=== PATIENT | male | born 1940 | race Caucasian/White ===

== ENCOUNTER 2018-02-06 19:46 | Emergency (ER) | payer BC, MEDICARE ==
[2018-02-06 20:02] VITALS: BP 144/85
[2018-02-06] MEDS ORDERED: Ondansetron 4 MG/2 ML SDV IM ONE (20:16)
[2018-02-06] MEDS ORDERED: HYDROmorphone 1 MG/ML Syringe IM ONE (20:16)
--- NOTE | 2018-02-06 20:19 | EDM.PDOC ---
ED HPI GENERAL MEDICAL PROBLEM - General Chief Complaint: Abdominal Pain Stated Complaint: STEPPED WRONG AND HURT LEFT SIDE DOWN INTO LEG Time Seen by Provider: 02/06/18 20:14 Source of Information: Reports: Patient History Limitations: Reports: No Limitations - History of Present Illness INITIAL COMMENTS - FREE TEXT/NARRATIVE: 77-year-old male presents to the ED for evaluation of left upper quadrant abdominal pain left flank back pain radiate down the posterior lateral aspect of his left leg. Pain does not radiate down into his testicle. 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 States he lost his balance did trip and fell to the ground. has had 3 major back surgeries with fusion of the lumbar spine. Patient has chronic low back pain for which he is on Nucynta 3 times daily. He is on multiple other medications for chronic pain relief. He feels most of the pain in the left upper quadrant of his abdomen. He believes that he may have stretched his abdominal wall muscles. 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 Denies hitting his head or any body parts. Does not hurt in his ribs. Bowels work normally earlier today with no blood. Does have a history of kidney stones. However he is not nauseated and doesn't have a continuous feeling of need to void or defecate. Onset: Today Onset Date: 02/06/18 Onset Time: 18:00 Duration: Hour(s): Location: Reports: Abdomen (Upper quadrant and mid abdomen.), Back (Left low back pain rating down the posterior lateral aspect of his left thigh compared with L5 nerve root irritation.) Quality: Reports: Ache, Other Severity: Moderate (Pain is worse with movement no pain when he is at rest.) Improves with: Reports: Rest Worsens with: Reports: Movement Context: Reports: Other (Which did cause him to fall to the ground). Denies: Activity (Such as sitting up from a lying down position.), Exercise, Lifting, Sick Contact Associated Symptoms: Reports: Cough, cough w sputum (Chronic cough as he is a cigarette smoker with COPD), Shortness of Breath. 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 (see below) (No new pain medicines today.) Left Lower Abdomen Pain Score (Numeric/FACES): 10 - Related Data Allergies Allergy/AdvReac Type Severity Reaction Status Date / Time acetaminophen [From [place]] Allergy Chills Verified 02/06/18 19:59 amitriptyline Allergy Confusion Verified 02/06/18 19:59 diazepam Allergy Hallucinati Verified 02/06/18 19:59 ons hydrocodone [From [place]] Allergy Chills Verified 02/06/18 19:59 methadone Allergy Hallucinati Verified 02/06/18 19:59 ons Home Meds: Home Meds Albuterol Sulfate [Proair Hfa] 2 puff INH Q4H PRN 08/01/16 [History] Aspirin [Halfprin] 1 tab PO Q48H 08/01/16 [History] Clopidogrel [Plavix] 1 tab PO DAILY 08/01/16 [History] Esomeprazole [NexIUM] 1 cap PO DAILY 08/01/16 [History] Finasteride 1 tab PO DAILY 08/01/16 [History] Fluticasone/Salmeterol [Advair 100-50 Diskus] 1 puff INH BID 08/01/16 [History] Gabapentin 1 cap PO QID 08/01/16 [History] Tamsulosin [Flomax] 1 tab PO DAILY 08/01/16 [History] Tapentadol HCl [Nucynta ER] 1 tab PO BID 08/01/16 [History] rOPINIRole HCl [Ropinirole HCl] 1 tab PO 1200 08/01/16 [History] predniSONE [Deltasone] 20 mg PO BID #12 tablet 02/06/18 [Rx] Past Medical History HEENT History: Reports: None, Cataract, Impaired Vision Other HEENT History: Wears glasses Cardiovascular History: Reports: None Respiratory History: Reports: COPD Gastrointestinal History: Reports: GERD Genitourinary History: Reports: BPH 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: None Musculoskeletal History: Reports: Arthritis Other Musculoskeletal History: chronic low back paiun, myofascial muscle pain, post laminectomy syndrome (lumbar region), restless leg syndrome Neurological History: Reports: CVA, Headaches, Chronic, TIA Other Neuro History: abnormal involuntary movement Psychiatric History: Reports: None Endocrine/Metabolic History: Reports: None Hematologic History: Reports: None Immunologic History: Reports: None Oncologic (Cancer) History: Reports: None Dermatologic History: Reports: Other (See Below) Other Dermatologic History: skin sensation disturbance, easily bruises, malignant neoplasm of skin, acitnic keratosis, dysplastic nevus, seborrheic keratoses - Past Surgical History Head Surgeries/Procedures: Reports: None HEENT Surgical History: Reports: Cataract Surgery GI Surgical History: Reports: Appendectomy, Cholecystectomy Neurological Surgical History: Reports: Lumbar Spine Social & Family History - Caffeine Use Caffeine Use: Reports: None - Living Situation & Occupation Living situation: Reports: Single 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 Denies: Fever, Chills, Malaise, Weakness, Fatigue, Weight Loss HEENT: Reports: Glasses, Hearing Loss (Mild hearing problems) Respiratory: Reports: Shortness of Breath, Wheezing (Chronically known COPD with chronic cough due to cigarette smoking.), Cough, Sputum (Chronic cough sputum is usually brownish to white in color). Denies: Pleuritic Chest Pain Cardiovascular: Reports: Blood Pressure Problem, Claudication, Dyspnea on Exertion (Chronically). Denies: Chest Pain, Edema, Lightheadedness, Orthopnea GI/Abdominal: Reports: Abdominal Pain (See history of present illness). Denies : Decreased Appetite, Difficulty Swallowing, Distension, Flatus, Hematemesis, Hematochezia, Melena : Reports: Other (Nocturia 2. Known BPH.) Musculoskeletal: Reports: Back Pain (Chronic low back pain with 3 previous surgeries to fuse his lower back. Currently having pain in the posterior lateral left thigh) Skin: Reports: No Symptoms ( both L5 nerve root irritation.) Neurological: Reports: Difficulty Walking. Denies: Confusion, Dizziness, Headache, Numbness, Paresthesia, Pre-Existing Deficit, Seizure, Syncope, Tingling, Tremors, Trouble Speaking, Weakness Psychiatric: Reports: No Symptoms Hematologic/Lymphatic: Reports: No Symptoms ED EXAM, GI/ABD - Physical Exam Exam: See Below Exam Limited By: No Limitations General Appearance: Alert, WD/WN, Mild Distress Eyes: Bilateral: Normal Appearance (Very thin in appearance.) Throat/Mouth: Other (Or fractures diffusely erythematous from cigarette smoking. ) Head: Atraumatic, Normocephalic Neck: Normal Inspection, Supple, Non-Tender, Full Range of Motion. No: Lymphadenopathy (L), Lymphadenopathy (R) Respiratory/Chest: Respiratory Distress, Decreased Breath Sounds (Mild tachypnea at rest), Wheezing. No: Lungs Clear, Normal Breath Sounds, Chest Non- Tender Cardiovascular: Normal Peripheral Pulses (Occasional expiratory wheezes throughout lung koo.), Regular Rate, Rhythm, No Edema, No Murmur GI/Abdominal Exam: Soft, Tender (Tenderness left upper quadrant abdomen which appears to be quite deep to palpation.). No: Guarding, Rigid, Rebound (Male) Exam: No Hernia. No: Scrotum Tenderness (L), Scrotum Tenderness (R) Back Exam: Other (Phone to be extremely tender throughout the left lower lumbar spine particularly for 5 and 5 L5-S1 facet joints and the superior half of the SI joint. Pain on right sacroiliac joint palpation.) Extremities: Normal Inspection, Normal Range of Motion Neurological: Alert, Oriented, CN II-XII Intact, Normal Cognition Psychiatric: Normal Affect, Normal Mood Skin Exam: Warm, Dry, Intact, Normal Color, Other Course - Vital Signs Last Recorded V/S: Last Vital Signs Temp 36.6 C 02/06/18 19:59 Pulse 86 02/06/18 19:59 Resp 18 02/06/18 19:59 BP 144/85 H 02/06/18 19:59 Pulse Ox 92 L 02/06/18 19:59 - Orders/Labs/Meds Orders: Active Orders 24 hr Category Date Time Status Abdomen 1V Flat [CR] Stat Exams 02/06/18 20:15 Taken Lumbar Spine 2 or 3V [CR] Stat Exams 02/06/18 20:14 Taken URINALYSIS W/MICROSCOPIC [UA W/MICROSCOPIC] [URIN] Stat Lab 02/06/18 20:48 Ordered Meds: Medications Discontinued Medications Generic Name Dose Route Start Last Admin Trade Name Freq PRN Reason Stop Dose Admin Hydromorphone HCl 1 mg 02/06/18 20:16 02/06/18 20:30 Dilaudid IM 02/06/18 20:17 1 mg ONETIME ONE Administration Ondansetron HCl 4 mg 02/06/18 20:16 02/06/18 20:29 Zofran IM 02/06/18 20:17 4 mg ONETIME ONE Administration - Radiology Interpretation Free Text/Narrative:: 77-year-old male presents the ED with acute onset of left upper quadrant abdominal pain mild upper back pain in the flank and left lower back pain rating down the posterior lateral aspect of his left leg. He states all this occurred when he slipped off the step coming out of the semitruck about 1800 hrs. today. He has no pain when he is at rest. Pain is severe with movement like sitting up. Periodically strained his external oblique muscles but it's pain is very deep to palpation left upper quadrant. Does have pain at L4-L5 and L5-S1 facet joints and left sacroiliac joint. No inguinal hernia evident. One view of the abdomen to be done since she has a history of bowel obstructions. I do not see feel this is present at this time. Two-view of his lumbar spine to be done. We'll give him 1 mg of Dilaudid IM with Zofran 4 mg IM. Patient is on anticoagulant Plavix. He also takes Nucynta 3 times daily therefore he has a very high narcotic pain medication tolerance. - Re-Assessments/Exams Free Text/Narrative Re-Assessment/Exam: 02/06/18 20:51 KUB reveals increased air throughout the right hemicolon and left upper quadrant of the abdomen. Eyes of bowel obstruction. X-rays of lumbar spine reveal multilevel fusion from lumbar 2 to S1. He has a scoliosis concave to the right side. He does have compression fracture deformities on the right side. Hardware appears to be in good position with no signs of loosening. Patient will be discharged to home. I'm going to place him on a short course of prednisone 20 mg twice a day for the next 6 days starting tonight. He will use one twice daily with breakfast and supper. Follow-up with his personal care physician if he is not improved in the next 5-7 days. Advised he will be worse tomorrow and likely the next day as well. Departure - Departure Time of Disposition: 20:46 Disposition: Home, Self-Care 01 Condition: Fair Clinical Impression: Low back strain Qualifiers: Encounter type: initial encounter Qualified Code(s): S39.012A - Strain of muscle, fascia and tendon of lower back, initial encounter - Discharge Information *PRESCRIPTION DRUG MONITORING PROGRAM REVIEWED*: Yes *COPY OF PRESCRIPTION DRUG MONITORING REPORT IN PATIENT KIM: No Prescriptions: predniSONE [Deltasone] 20 mg PO BID #12 tablet Referrals: Samira Anglin NP [Primary Care Provider] - Forms: ED Department Discharge Additional Instructions: Evaluation in the emergency room today in regards to acute strain of your lower back and mid back with radiation of pain into left upper abdomen. Sriram examination is benign other than a collection of air up underneath the left hemidiaphragm on x-ray. Had a look at your back on x-ray and you shows severe scoliosis to the right side with multilevel the obvious new fractures. Treatment is therefore time to heal from suspect strain today during trip and fall for getting down from the truck. Expect to be a little worse tomorrow and perhaps the next day and then slowly improved. Continue all current medications I suggest a short course of prednisone 20 mg twice daily with breakfast and supper although you may take the first tablet tonight. This is for 6 days to relieve pain and inflammation in your back. Follow-up with personal care provider as needed. - My Orders Last 24 Hours: My Active Orders 02/06/18 20:14 Lumbar Spine 2 or 3V [CR] Stat 02/06/18 20:15 Abdomen 1V Flat [CR] Stat 02/06/18 20:48 URINALYSIS W/MICROSCOPIC [UA W/MICROSCOPIC] [URIN] Stat - Assessment/Plan Last 24 Hours: My Active Orders 02/06/18 20:14 Lumbar Spine 2 or 3V [CR] Stat 02/06/18 20:15 Abdomen 1V Flat [CR] Stat 02/06/18 20:48 URINALYSIS W/MICROSCOPIC [UA W/MICROSCOPIC] [URIN] Stat
--- NOTE | 2018-02-09 19:39 | CR ---
Lumbar spine: AP and lateral views of the lumbar spine were obtained as well as coned down lateral view centered to the lumbosacral junction. Comparison: No prior lumbar spine imaging. Transpedicle screws are seen within L1-S1. Scoliosis noted. Osteopenia is present. Slight compression deformities are noted at T11 and T12 which are most likely old. Nothing acute is appreciated. Impression: 1. Extensive surgery. Osteopenia and scoliosis. Several slight compression deformities. 2. Nothing acute is appreciated. Diagnostic code #2
--- NOTE | 2018-02-09 19:39 | CR ---
Abdomen: Supine view of the abdomen was obtained. Comparison: No prior abdominal imaging. Previous lumbar spine surgery noted. Scoliosis noted within the spine. Diffuse gas noted within the colon which does not appear to be obstructive. Osteopenia is present. No discrete soft tissue abnormality is seen. Impression: 1. Diffuse gas within the colon which does not appear to be obstructive. May represent minimal ileus. 2. Other incidental findings. Diagnostic code #2
== END 2018-02-06 20:58 | disposition home or self-care (01) ==
LOC: JD.ED 19:46
DX: S39.012A Strain of muscle, fascia and tendon of lower back, initial encounter (principal); Z88.8 Allergy status to other drugs, medicaments and biological substances; Z79.82 Long term (current) use of aspirin; Z79.899 Other long term (current) drug therapy; Z86.73 Personal history of transient ischemic attack (TIA), and cerebral infarction without residual deficits; Z98.1 Arthrodesis status; V69.9XXA Occupant (driver) (passenger) of heavy transport vehicle injured in unspecified traffic accident, initial encounter
CPT/HCPCS: 72100; 74018; 81001; 96372; 99284; J1170; J2405

== ENCOUNTER 2019-07-02 12:59 | Observation (INO) | payer MEDICARE, BC ==
[2019-07-02] MEDS ORDERED: Sodium Chloride 0.9% 10 ML Syringe FLUSH PRN (13:09)
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
[2019-07-02] MEDS ORDERED: ceFAZolin 2 GM in Premix Bag 1 BAG IV ONE (13:30)
[2019-07-02] MEDS ORDERED: Albuterol 6.7 GM Inhaler INH PRN (13:31)
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
[2019-07-02] MEDS: Bupivacaine 0.5%/EPINEPHrine 1:200,000 50 ML MDV ONE ×2 (13:43→14:49)
[2019-07-02] MEDS ORDERED: Ondansetron 4 MG/2 ML SDV ONE (13:44)
[2019-07-02] MEDS ORDERED: Lidocaine 1% 4 ML ONE (13:44)
[2019-07-02] MEDS ORDERED: Lactated Ringers 1,000 ML ONE ×2 (13:44→15:03)
[2019-07-02] MEDS ORDERED: ceFAZolin 1 GM Vial ONE (13:44)
[2019-07-02] MEDS ORDERED: fentaNYL 250 MCG/5 ML SDV ONE (13:44)
[2019-07-02] MEDS ORDERED: Propofol 200 MG/20 ML SDV ONE (13:44)
[2019-07-02] MEDS ORDERED: Rocuronium 50 MG/5 ML Vial ONE (13:44)
[2019-07-02] MEDS ORDERED: Dexamethasone 4 MG/ML 5 ML MDV ONE (13:44)
[2019-07-02] MEDS ORDERED: Succinylcholine/Normal Saline 100 MG/5 ML Syringe ONE (13:45)
[2019-07-02] MEDS ORDERED: Albuterol 0.083% 2.5 MG/3 ML Neb Soln NEB ONE (14:02)
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
[2019-07-02] MEDS ORDERED: Neostigmine Methylsulfate 1 MG/ML 5 ML Syringe ONE (14:51)
[2019-07-02] MEDS ORDERED: Albuterol 0.083% 2.5 MG/3 ML Neb Soln NEB PRN (14:52)
[2019-07-02] MEDS ORDERED: Ondansetron 4 MG/2 ML SDV IVPUSH PRN (14:52)
[2019-07-02] MEDS ORDERED: HYDROmorphone 0.5 MG/0.5 ML Syringe IVPUSH PRN (14:52)
[2019-07-02] MEDS ORDERED: fentaNYL 100 MCG/2 ML SDV IVPUSH PRN (14:52)
[2019-07-02] MEDS ORDERED: Ketamine 500 mg/10 ML MDV ONE (14:54)
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
--- NOTE | 2019-07-02 16:03 | PCM.POSTAN ---
POST ANESTHESIA ASSESSMENT - MENTAL STATUS Mental Status: Alert, Oriented, Disoriented (Initially disoriented, but came around rather quickly) - VITAL SIGNS Vital Signs: Last Vital Signs Temp 36.7 C 07/02/19 13:03 Pulse 93 07/02/19 13:40 Resp 20 07/02/19 13:40 BP 116/76 07/02/19 13:40 Pulse Ox 95 07/02/19 14:02 - RESPIRATORY Respiratory Status: Respiratory Rate WNL, Airway Patent, O2 Saturation Stable, Supplemental Oxygen (2 L NC O2) - CARDIOVASCULAR CV Status: Pulse Rate WNL, Blood Pressure Stable - GASTROINTESTINAL GI Status: No Symptoms - PAIN Pain Score: 0 - POST OP HYDRATION Hydration Status: Adequate & Stable - OBSERVATIONS Free Text/Narrative:: Patient was initially a little dysphoric and wasn't making sense in his speech, but shortly after arriving in recovery he was answering questions appropriately and following commands and knew where he lived and what happened to him.
--- NOTE | 2019-07-02 16:18 | PCM48HPAN ---
Post Anesthesia Note - EVALUATION WITHIN 48HRS OF ANESTHETIC Vital Signs in Normal Range: Yes Patient Participated in Evaluation: Yes Respiratory Function Stable: Yes Airway Patent: Yes Cardiovascular Function Stable: Yes Hydration Status Stable: Yes Pain Control Satisfactory: Yes Nausea and Vomiting Control Satisfactory: Yes Mental Status Recovered: Yes Vital Signs: Last Vital Signs Temp 36.8 C 07/02/19 15:47 Pulse 93 07/02/19 13:40 Resp 12 07/02/19 16:00 BP 133/76 07/02/19 16:00 Pulse Ox 93 L 07/02/19 16:00 - COMMENTS/OBSERVATIONS Free Text/Narrative:: Routine recovery. Going for 24 hour observation prior to discharge. No concerns at this time.
[2019-07-02] MEDS ORDERED: Acetaminophen 325 MG Tab PO SCH (18:00)
[2019-07-02] MEDS: rOPINIRole 1 MG Tab PO SCH ×2 (18:05→21:51)
[2019-07-02] MEDS: Gabapentin 300 MG Cap PO SCH ×2 (18:05→21:51)
[2019-07-02] MEDS ORDERED: Non-Formulary Medication 1 Each (Budesonide/Formoterol 2 PUFF) INH SCH (21:00)
[2019-07-02] MEDS: oxyCODONE 5 MG Tab PO PRN (22:10)
[2019-07-03] MEDS ORDERED: Pantoprazole 40 MG Tab.CR PO SCH ×2 (05:00→09:00)
[2019-07-03] MEDS ORDERED: Ondansetron 4 MG/2 ML SDV IVPUSH ONE (08:20)
[2019-07-03] MEDS ORDERED: Ondansetron 4 MG Tab.DIS PO PRN (08:31)
[2019-07-03] MEDS: Gabapentin 300 MG Cap PO SCH ×2 (08:31→15:30)
[2019-07-03] MEDS: rOPINIRole 1 MG Tab PO SCH ×2 (08:31→15:30)
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
[2019-07-03] MEDS ORDERED: predniSONE 20 MG Tab PO SCH (09:00)
[2019-07-03] MEDS ORDERED: Clopidogrel 75 MG Tab PO SCH (09:00)
[2019-07-03] MEDS ORDERED: Fluticasone/Umeclidin/Vilanter 1 PUFF INH SCH (09:00)
[2019-07-03] MEDS: oxyCODONE 5 MG Tab PO PRN (09:32)
[2019-07-03] MEDS ORDERED: Nicotine 14 MG/24 Hr Patch TRDERM ONE (10:18)
[2019-07-03 12:33] VITALS: BP 118/70; PULSE 92
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
--- NOTE | 2019-07-04 17:48 | CR ---
Chest: Portable view of the chest was obtained. Comparison: Prior chest x-ray of 12/05/10. Heart size appears within normal limits for portable technique. Tortuous thoracic aorta is noted. Parenchymal density is noted above the right hemidiaphragm either due to pulmonary contusion or thick area of atelectasis. Lungs otherwise are clear with no acute parenchymal change. Several old healed right-sided rib fractures are noted. Bony structures are osteopenic. Previous lumbar spine surgery is noted. No pneumothorax is seen. Impression: 1. Parenchymal density within the right base above the right hemidiaphragm either due to pulmonary contusion or thick area of atelectasis. 2. Nothing acute is otherwise suspected on portable chest x-ray. Diagnostic code #3 This report was dictated in [place] Standard Time
== END 2019-07-03 15:24 | disposition home or self-care (01) ==
LOC: JD.ED 12:59 → JD.SDS 13:33 → JD.MS 15:44
PROVIDERS: ADMIT Surgery; ATTEND Surgery
DX: S31.112A Laceration without foreign body of abdominal wall, epigastric region without penetration into peritoneal cavity, initial encounter (principal); S36.409A Unspecified injury of unspecified part of small intestine, initial encounter; K25.9 Gastric ulcer, unspecified as acute or chronic, without hemorrhage or perforation; K21.9 Gastro-esophageal reflux disease without esophagitis; I25.10 Atherosclerotic heart disease of native coronary artery without angina pectoris; N40.0 Benign prostatic hyperplasia without lower urinary tract symptoms; M19.90 Unspecified osteoarthritis, unspecified site; F17.210 Nicotine dependence, cigarettes, uncomplicated; W26.0XXA Contact with knife, initial encounter; Z88.6 Allergy status to analgesic agent; Z88.8 Allergy status to other drugs, medicaments and biological substances; Z88.5 Allergy status to narcotic agent; Z79.02 Long term (current) use of antithrombotics/antiplatelets; J44.9 Chronic obstructive pulmonary disease, unspecified
CPT/HCPCS: 36415; 49329; 71045; 80053; 85025; 85610; 85730; 86850; 86900; 86901; 93005; 94640; 94761; 96374; A9270; G0378; J0330; J0690; J1100; J2001; J2405; J2704; J2710; J3010; J3490; J7120; 00700; 49320; 93010; 99219; 99284

== ENCOUNTER 2019-11-16 09:39 | Emergency (ER) | payer MEDICARE, BC ==
[2019-11-16 09:53] VITALS: BP 141/79; PULSE 100
[2019-11-16] MEDS ORDERED: Sodium Chloride 0.9% 10 ML Syringe FLUSH PRN (10:03)
--- NOTE | 2019-11-16 10:18 | EDM.PDOC ---
ED HPI GENERAL MEDICAL PROBLEM - General Chief Complaint: Chest Pain Stated Complaint: CHEST PAIN Time Seen by Provider: 11/16/19 09:57 Source of Information: Reports: Patient History Limitations: Reports: No Limitations - History of Present Illness INITIAL COMMENTS - FREE TEXT/NARRATIVE: The patient presents with chest pain. This has been going on for about 3 days. The pain comes and goes. The nile is described as a burning pain. The pain does radiate to his left arm. It kept him up all night but this morning it is gone. He has shortness of breath with it but that is a chronic issue. He has COPD. He still smokes. He has no history of hypertension. He does have a history of hypercholesterolemia. He stopped taking his medications months ago. He has no history of diabetes. He has no fever, chills, cough, abdominal pain , nausea or vomiting. Onset: Gradual Duration: Day(s): Location: Reports: Chest Quality: Reports: Burning Severity: Moderate Improves with: Reports: None Worsens with: Reports: None Associated Symptoms: Reports: Chest Pain. Denies: Confusion, Cough Left Lower Chest Pain Score (Numeric/FACES): 3 - Related Data Allergies Allergy/AdvReac Type Severity Reaction Status Date / Time acetaminophen [From [facility]] AdvReac Severe Chills Verified 11/16/19 09:54 amitriptyline AdvReac Severe Confusion Verified 11/16/19 09:54 diazepam AdvReac Severe Hallucinati Verified 11/16/19 09:54 ons hydrocodone [From [facility]] AdvReac Severe Chills Verified 11/16/19 09:54 methadone AdvReac Severe Hallucinati Verified 11/16/19 09:54 ons Home Meds: Home Meds Albuterol Sulfate [Proair Hfa] 2 puff INH Q4H PRN 08/01/16 [History] rOPINIRole HCl [Ropinirole HCl] 1 tab PO TID 08/01/16 [History] Budesonide/Formoterol [Symbicort 160-4.5 MCG] 2 puff INH BID 07/08/18 [History] Gabapentin [Neurontin] 300 mg PO TID 07/08/18 [History] Fluticasone/Umeclidin/Vilanter [Trelegy Ellipta 100-62.5-25] 1 puff INH DAILY [History] Roflumilast [Daliresp] 250 mcg PO DAILY 11/16/19 [History] Tapentadol HCl [Nucynta] 50 mg PO Q8H 11/16/19 [History] Past Medical History HEENT History: Reports: None, Cataract, Impaired Vision Other HEENT History: Wears glasses, has dentures Cardiovascular History: Reports: CAD Respiratory History: Reports: COPD, SOB Gastrointestinal History: Reports: GERD Genitourinary History: Reports: BPH [employer] History: Reports: None Musculoskeletal History: Reports: Arthritis Other Musculoskeletal History: chronic low back pain, myofascial muscle pain, post laminectomy syndrome (lumbar region), restless leg syndrome Neurological History: Reports: CVA, Headaches, Chronic, TIA Other Neuro History: abnormal involuntary movement Psychiatric History: Reports: None Endocrine/Metabolic History: Reports: None Hematologic History: Reports: None Immunologic History: Reports: None Oncologic (Cancer) History: Reports: None Dermatologic History: Reports: Other (See Below) Other Dermatologic History: skin sensation disturbance, easily bruises, malignant neoplasm of skin, acitnic keratosis, dysplastic nevus, seborrheic keratoses - Past Surgical History Head Surgeries/Procedures: Reports: None HEENT Surgical History: Reports: Cataract Surgery Cardiovascular Surgical History: Reports: None Respiratory Surgical History: Reports: None GI Surgical History: Reports: Appendectomy, Cholecystectomy Other GI Surgeries/Procedures: stomach surgery Male Surgical History: Reports: None Neurological Surgical History: Reports: Lumbar Spine Musculoskeletal Surgical History: Reports: Other (See Below) Other Musculoskeletal Surgeries/Procedures:: back surgery x 7 Oncologic Surgical History: Reports: None Dermatological Surgical History: Reports: None Social & Family History - Family History Family Medical History: Noncontributory - Tobacco Use Smoking Status *Q: Current Every Day Smoker Years of Tobacco use: 70 Packs/Tins Daily: 0.5 - Caffeine Use Caffeine Use: Reports: Soda - Recreational Drug Use Recreational Drug Use: No - Living Situation & Occupation Living situation: Reports: Single 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 time.) ED ROS GENERAL - Review of Systems Review Of Systems: See Below Constitutional: Reports: No Symptoms HEENT: Reports: No Symptoms Respiratory: Reports: Shortness of Breath Cardiovascular: Reports: Chest Pain Endocrine: Reports: No Symptoms GI/Abdominal: Reports: No Symptoms : Reports: No Symptoms Musculoskeletal: Reports: No Symptoms ED EXAM, GENERAL - Physical Exam Exam: See Below Exam Limited By: No Limitations General Appearance: Alert, No Apparent Distress Ears: Normal External Exam Nose: Normal Inspection Head: Atraumatic, Normocephalic Neck: Normal Inspection Respiratory/Chest: No Respiratory Distress, Lungs Clear, Normal Breath Sounds, Decreased Breath Sounds Cardiovascular: Regular Rate, Rhythm, No Edema, No Murmur GI/Abdominal: Soft, Non-Tender, No Organomegaly, No Mass Back Exam: Normal Inspection Extremities: Normal Inspection EKG INTERPRETATION EKG Date: 11/16/19 Time: 09:56 Rhythm: NSR Rate (Beats/Min): 95 [place]: Normal P-Wave: Present QRS: Normal ST-T: Normal QT: Normal Course - Vital Signs Last Recorded V/S: Last Vital Signs Temp 98.2 F 11/16/19 09:52 Pulse 100 11/16/19 09:52 Resp 16 11/16/19 09:52 BP 141/79 H 11/16/19 09:52 Pulse Ox 96 11/16/19 09:52 - Orders/Labs/Meds Orders: Active Orders 24 hr Category Date Time Status Cardiac Monitoring [RC] . DIRECTED Care 11/16/19 10:04 Active EKG Documentation Completion [RC] ASDIRECTED Care 11/16/19 09:56 Active Peripheral IV Care [RC] . DIRECTED Care 11/16/19 10:05 Active Sodium Chloride 0.9% [Saline Flush] Med 11/16/19 10:03 Active 10 ml FLUSH ASDIRECTED PRN Peripheral IV Insertion Adult [OM.PC] Stat Oth 11/16/19 10:03 Ordered EKG 12 Lead [EK] Stat Ther 11/16/19 09:55 Ordered Medication Orders Sodium Chloride (Saline Flush) 10 ml FLUSH ASDIRECTED PRN PRN Reason: Keep Vein Open Last Admin: 11/16/19 10:21 Dose: 10 ml Labs: Laboratory Tests 11/16/19 11/16/19 Range/Units 10:03 10:03 WBC 5.98 (4.23-9.07) K/mm3 RBC 4.81 (4.63-6.08) M/mm3 Hgb 15.1 (13.7-17.5) gm/dl Hct 45.0 (40.1-51.0) % MCV 93.6 H (79.0-92.2) fl MCH 31.4 (25.7-32.2) pg MCHC 33.6 (32.2-35.5) g/dl RDW Std Deviation 45.1 H (35.1-43.9) fL Plt Count 209 (163-337) K/mm3 MPV 11.1 (9.4-12.3) fl Neut % (Auto) 76.8 H (34.0-67.9) % Lymph % (Auto) 15.1 L (21.8-53.1) % [place] % (Auto) 5.9 (5.3-12.2) % Eos % (Auto) 1.5 (0.8-7.0) Baso % (Auto) 0.7 (0.1-1.2) % Neut # (Auto) 4.60 (1.78-5.38) K/mm3 Lymph # (Auto) 0.90 L (1.32-3.57) K/mm3 [place] # (Auto) 0.35 (0.30-0.82) K/mm3 Eos # (Auto) 0.09 (0.04-0.54) K/mm3 Baso # (Auto) 0.04 (0.01-0.08) K/mm3 Sodium 144 (136-145) mEq/L Potassium 3.4 L (3.5-5.1) mEq/L Chloride 106 (98-107) mEq/L Carbon Dioxide 26 (21-32) mEq/L Anion Gap 15.4 H (5-15) BUN 16 (7-18) mg/dL Creatinine 0.9 (0.7-1.3) mg/dL Est Cr Clr Drug Dosing 57.64 mL/min Estimated GFR (MDRD) > 60 (>60) mL/min BUN/Creatinine Ratio 17.8 (14-18) Glucose 120 H (83-115) mg/dL Calcium 9.0 (8.5-10.1) mg/dL Total Bilirubin 0.4 (0.2-1.0) mg/dL AST 15 (15-37) U/L ALT 16 (16-63) U/L Alkaline Phosphatase 82 (46-116) U/L Troponin I < 0.017 (0.00-0.056) ng/mL Total Protein 6.7 (6.4-8.2) g/dl Albumin 3.3 L (3.4-5.0) g/dl Globulin 3.4 gm/dL Albumin/Globulin Ratio 1.0 (1-2) Meds: Medications Generic Name Dose Route Start Last Admin Trade Name Freq PRN Reason Stop Dose Admin Sodium Chloride 10 ml 11/16/19 10:03 11/16/19 10:21 Saline Flush FLUSH 10 ml ASDIRECTED PRN Administration Keep Vein Open - Re-Assessments/Exams Free Text/Narrative Re-Assessment/Exam: 11/16/19 10:53 I ordered an IV saline lock, EKG, CXR and labs. His EKG shows a NSR with no acute changes. His CXR shows COPD changes but nothing acute. His CBC and CMP look good. His troponin is negative. 11/16/19 11:07 He tells me that this may have started way back on the . He is point tender to the cartilage to the left lower chest. I will have him take some motrin for a few days. Departure - Departure Time of Disposition: 11:10 Disposition: Home, Self-Care 01 Condition: Good Clinical Impression: Atypical chest pain Referrals: Samira Varner COPYWRITER [Primary Care Provider] - 1 Week Forms: ED Department Discharge Additional Instructions: Take your medication as prescribed. Take motrin 400mg every 6 hours as needed for pain. Follow up with Samira. Please return if you are worse. Sepsis Event Note - Evaluation Sepsis Screening Result: No Definite Risk - Focused Exam Vital Signs: Vital Signs Temp Pulse Resp BP Pulse Ox 11/16/19 09:52 98.2 F 100 16 141/79 H 96 Date Exam was Performed: 11/16/19 Time Exam was Performed: 11:07 - My Orders Last 24 Hours: My Active Orders 11/16/19 09:55 EKG 12 Lead [EK] Stat 11/16/19 09:56 EKG Documentation Completion [RC] ASDIRECTED 11/16/19 10:03 Sodium Chloride 0.9% [Saline Flush] 10 ml FLUSH ASDIRECTED PRN Peripheral IV Insertion Adult [OM.PC] Stat 11/16/19 10:04 Cardiac Monitoring [RC] . DIRECTED 11/16/19 10:05 Peripheral IV Care [RC] . DIRECTED - Assessment/Plan Last 24 Hours: My Active Orders 11/16/19 09:55 EKG 12 Lead [EK] Stat 11/16/19 09:56 EKG Documentation Completion [RC] ASDIRECTED 11/16/19 10:03 Sodium Chloride 0.9% [Saline Flush] 10 ml FLUSH ASDIRECTED PRN Peripheral IV Insertion Adult [OM.PC] Stat 11/16/19 10:04 Cardiac Monitoring [RC] . DIRECTED 11/16/19 10:05 Peripheral IV Care [RC] . DIRECTED
--- NOTE | 2019-11-16 10:34 | CR ---
Chest: 2 views of the chest were obtained. Comparison: Prior chest x-ray of 07/02/19. Heart size is normal. Tortuous thoracic aorta is noted. Prior lumbar spine surgery is seen. Scoliosis is noted within the spine. Diaphragms are flattened on the lateral view compatible with emphysematous change. No acute parenchymal process is seen within either lung. Impression: 1. Emphysematous change. 2. Other findings as noted above. 3. Nothing acute is seen. Diagnostic code #2 This report was dictated in MDT
== END 2019-11-16 11:16 | disposition home or self-care (01) ==
LOC: JD.ED 09:39
DX: R07.89 Other chest pain (principal); I25.10 Atherosclerotic heart disease of native coronary artery without angina pectoris; J44.9 Chronic obstructive pulmonary disease, unspecified; K21.9 Gastro-esophageal reflux disease without esophagitis; M19.90 Unspecified osteoarthritis, unspecified site; F17.210 Nicotine dependence, cigarettes, uncomplicated; Z86.73 Personal history of transient ischemic attack (TIA), and cerebral infarction without residual deficits; Z90.89 Acquired absence of other organs; Z88.8 Allergy status to other drugs, medicaments and biological substances; Z79.899 Other long term (current) drug therapy; Z90.49 Acquired absence of other specified parts of digestive tract
CPT/HCPCS: 36415; 71046; 71046-26; 80053; 84484; 85025; 93005; 99285-25

== ENCOUNTER 2021-11-26 16:07 | Emergency (ER) | payer MEDICARE, BC ==
[2021-11-26 16:53] VITALS: BP 122/64; PULSE 63
[2021-11-26 17:47] LABS: ESTIMATED GFR > 60 mL/min (>60)
== END 2021-11-26 19:40 | disposition home or self-care (01) ==
LOC: JD.ED 16:07
DX: R42 Dizziness and giddiness (principal); J44.9 Chronic obstructive pulmonary disease, unspecified; K21.9 Gastro-esophageal reflux disease without esophagitis; N40.0 Benign prostatic hyperplasia without lower urinary tract symptoms; Z86.73 Personal history of transient ischemic attack (TIA), and cerebral infarction without residual deficits; Z88.5 Allergy status to narcotic agent; Z88.8 Allergy status to other drugs, medicaments and biological substances
CPT/HCPCS: 36415; 71045; 71045-26; 80053; 83880; 84484; 85025; 86140; 93005; 93010; 93225; 93226; 99283; 99285-25

== ENCOUNTER 2022-07-04 11:26 | Emergency (ER) | payer MEDICARE, BC ==
[2022-07-04 11:40] VITALS: PULSE 103
[2022-07-04] MEDS ORDERED: Sodium Chloride 0.9% 10 ML Syringe FLUSH PRN (12:00)
[2022-07-04 12:57] LABS: ESTIMATED GFR 89 mL/min (>60)
[2022-07-04] MEDS ORDERED: Acetaminophen 325 MG Tab PO ONE (13:11)
[2022-07-04 13:14] LABS: CORONAVIRUS COVID-19 NAA NEGATIVE (NEGATIVE)
[2022-07-04 13:48] VITALS: BP 141/54
== END 2022-07-04 13:45 | disposition home or self-care (01) ==
LOC: JD.ED 11:26
DX: J32.9 Chronic sinusitis, unspecified (principal); J44.9 Chronic obstructive pulmonary disease, unspecified; K21.9 Gastro-esophageal reflux disease without esophagitis; F17.210 Nicotine dependence, cigarettes, uncomplicated; Z86.73 Personal history of transient ischemic attack (TIA), and cerebral infarction without residual deficits; Z88.5 Allergy status to narcotic agent; Z88.8 Allergy status to other drugs, medicaments and biological substances; Z20.822 Contact with and (suspected) exposure to COVID-19
CPT/HCPCS: 0241U; 36415; 80053; 81001; 85025; 86140; 99284; A9270; J3490